=== PATIENT | male | born 1965 | race Hispanic/Latino ===

== ENCOUNTER 2021-04-05 06:53 | Day surgery (SDC) | payer OTHER ==
[2021-03-27 14:52] VITALS: BMI 30.9
[2021-04-05 08:13] LABS: #Eosinphils 0.1 thou/uL (0.0-0.7); #Lymphocytes 2.2 thou/uL (1.20-3.40); #Monocytes 0.4 thou/uL (0.11-0.59); #Neutrophils 3.5 thou/uL (1.40-6.50); %Basophils 0.6 % (0.0-1.0); %Eosinophils 1.4 % (0.0-10.0); %Lymphocytes 34.9 % (21.0-51.0); %Monocytes 6.9 % (0.0-10.0); %Neutrophils 56.3 % (42.0-75.0); Hemoglobin 15.9 g/dL (14.0-18.0); Mean Corpuscular HGB CONC 35.6 g/dL (32.0-36.0); Mean Corpuscular Hemoglobin 33.2 pg (27.0-31.0); Mean Corpuscular Volume 93.2 fL (78.0-98.0); Mean Platelet Volume 7.8 fL (7.4-10.4); Platelet Count 207 thou/uL (130-400); RBC Distribution Width 11.8 % (11.5-14.5); White Blood Cell (WBC) Count 6.2 thou/uL (4.8-10.8)
[2021-04-05 08:28] LABS: Anion Gap 10 mmol/L (10-20); BUN (Urea Nitrogen) 13 mg/dL (8.4-25.7); Calc. Creatinine Clearance 98 mL/min (70-130); Calcium 9.5 mg/dL (7.8-10.44); Carbon Dioxide 28 mmol/L (22-29); Chloride 104 mmol/L (98-107); Glucose 104 mg/dL (70-105); Potassium 3.9 mmol/L (3.5-5.1); Sodium 138 mmol/L (136-145)
[2021-04-05] MEDS ORDERED: Fentanyl 250 MCG/5 ML VIAL ONE (09:24)
[2021-04-05] MEDS ORDERED: ceFAZolin 2 GM/Dextrose 50 ML IVPB ONE (09:25)
[2021-04-05] MEDS ORDERED: Ondansetron PF 4 MG/2 ML Vial ONE (09:45)
[2021-04-05] MEDS ORDERED: PROPOFOL 200 MG/20 ML VIAL ONE (09:45)
[2021-04-05] MEDS ORDERED: Dexamethasone 20 MG/5 ML VIAL ONE (09:45)
[2021-04-05] MEDS ORDERED: Rocuronium Bromide 10 MG/ML (10ML VIAL) ONE (09:45)
[2021-04-05] MEDS ORDERED: PHENYLEPHRINE-NS 100 MCG/ML 10 ML SYRINGE ONE (09:45)
[2021-04-05] MEDS ORDERED: Lidocaine 1% PF 5 ML VIAL ONE (09:45)
[2021-04-05] MEDS ORDERED: ePHEDrine 50 MG/ML VIAL ONE (09:45)
[2021-04-05] MEDS ORDERED: Glycopyrrolate 0.2 MG/ML 5 ML SYRINGE ONE (09:45)
[2021-04-05] MEDS ORDERED: Promethazine HCl 25 MG/ML VIAL IVPB PRN (11:09)
[2021-04-05] MEDS ORDERED: Promethazine HCl 25 MG/ML VIAL IM PRN (11:09)
[2021-04-05] MEDS ORDERED: Ondansetron HCl/PF 4 MG/2 ML Vial IVP PRN (11:09)
[2021-04-05] MEDS ORDERED: Fentanyl 100 MCG/2 ML VIAL ONE ×4 (11:22→12:26)
[2021-04-05] MEDS ORDERED: Tamsulosin HCl 0.4 MG CAP ONE (12:35)
[2021-04-05] MEDS ORDERED: HYDROmorphone 2 MG/ML VIAL ONE (12:44)
[2021-04-05] MEDS ORDERED: Morphine 4 MG/ML VIAL ONE (14:41)
[2021-04-05] MEDS ORDERED: HYDROcodone/Acetaminophen 5/325 mg Tablet ONE ×2 (15:13→15:58)
== END 2021-04-05 16:20 | disposition home or self-care (01) ==
LOC: SDC 06:53
PROVIDERS: ATTEND Neurological Surgery
PROC: 0SG30AJ Fusion of Lumbosacral Joint with Interbody Fusion Device, Posterior Approach, Anterior Column, Open Approach (ICD-10-PCS; principal; 2021-04-05)
DX: M51.37 Other intervertebral disc degeneration, lumbosacral region (principal); M54.16 Radiculopathy, lumbar region; E78.5 Hyperlipidemia, unspecified; F17.290 Nicotine dependence, other tobacco product, uncomplicated; E66.9 Obesity, unspecified; Z68.31 Body mass index [BMI] 31.0-31.9, adult; Z86.16 Personal history of COVID-19; Z79.899 Other long term (current) drug therapy
CPT/HCPCS: 36415; 76000; 80048; 85025; 93005; 93010; C1713; C1768; C1776; J0690; J1100; J1170; J2270; J2405; J2704; J3010; J3370; J3490